=== PATIENT | male | born 1940 | race Caucasian/White ===

== ENCOUNTER 2019-11-24 15:11 | Emergency (ER) | payer OTHER ==
[~2019-11-24] VITALS: Ht 160 cm; Wt 72.1 kg
[~2019-11-24 15:11] MED LIST: ALLOPURINOL100 MG PO; AMLODIPINE BESYL5 M1 PO; DIPHEN/ATROPINE; ENALAPRIL MALEAT5 MG PO; FENOFIBRATE MI134 MG PO; LEVOTHYROXIN0.025 M2 PO
[2019-11-24 17:38] VITALS: BP 129/85
== END 2019-11-24 17:38 | disposition home or self-care (01) ==
LOC: ED 15:11
DX: J18.9 Pneumonia, unspecified organism (principal); I10 Essential (primary) hypertension